=== PATIENT | male | born 1995 | race Caucasian/White ===

== ENCOUNTER 2019-07-04 20:37 | Emergency (ER) | payer OTHER ==
[2019-07-04 20:46] VITALS: BP 124/68; PULSE 83; RESP 18; TEMP 98.2
--- NOTE | 2019-07-04 20:48 | ED ---
General Adult HPI - General Chief complaint: Needlestick/Exposure Stated complaint: Needlestick [facility] Time Seen by Provider: 07/04/19 20:42 Source: patient Mode of arrival: ambulatory Limitations: no limitations - History of Present Illness Initial comments: Patient is a 23-year-old male presenting to the emergency department with a chief complaint of needlestick exposure. States he was cleaning a skin tear when he poked himself on the finger. Denies any pain in the region of injury. States his vaccinations are up-to-date. Source unknown. Has no complaints at this time. - Related Data Allergies Allergy/AdvReac Type Severity Reaction Status Date / Time No Known Allergies Allergy Verified 07/04/19 20:47 Review of Systems ROS Statement: Those systems with pertinent positive or pertinent negative responses have been documented in the HPI. ROS Other: All systems not noted in ROS Statement are negative. Past Medical History Past Medical History: No Reported History History of Any Multi-Drug Resistant Organisms: None Reported Additional Past Surgical History / Comment(s): retina surgery Past Psychological History: No Psychological Hx Reported Smoking Status: Never smoker Past Alcohol Use History: Occasional Past Drug Use History: None Reported General Exam Limitations: no limitations General appearance: alert, in no apparent distress Head exam: Present: atraumatic, normocephalic, normal inspection Eye exam: Present: normal appearance Pupils: Present: normal accommodation ENT exam: Present: normal exam, mucous membranes moist Neck exam: Present: normal inspection, full ROM Respiratory exam: Present: normal lung sounds bilaterally Cardiovascular Exam: Present: regular rate, normal rhythm, normal heart sounds Extremities exam: Present: normal inspection (No evidence of needle exposure), full ROM Back exam: Present: normal inspection, full ROM Neurological exam: Present: alert, oriented X3 Psychiatric exam: Present: normal affect, normal mood Skin exam: Present: warm, dry, intact, normal color Course Vital Signs 07/04/19 20:44 Temperature 98.2 F Pulse Rate 83 Respiratory 18 Rate Blood Pressure 124/68 O2 Sat by Pulse 97 Oximetry Medical Decision Making - Medical Decision Making Patient is a 23-year-old male presenting to emergency Department with a chief complaint of needle exposure. Patient was cleaning a sharps container when he poked himself with diabetic lancet. Denies any bleeding from the site of injury denies any pain to the region. This is an [facility] case. Laboratory work obtained. Patient will be notified with the results. Disposition Clinical Impression: Exposure to body fluid due to accidental needlestick injury Disposition: HOME SELF-CARE Condition: Stable Instructions (If sedation given, give patient instructions): Needle Stick Injuries (ED) Additional Instructions: You'll be contacted with the results. Is patient prescribed a controlled substance at d/c from ED?: No Referrals: Ganesh Pham DO [Primary Care Provider] - 1-2 days Time of Disposition: 21:13
== END 2019-07-04 21:31 | disposition home or self-care (01) ==
LOC: EC 20:37
DX: Z77.21 Contact with and (suspected) exposure to potentially hazardous body fluids (principal); W46.0XXA Contact with hypodermic needle, initial encounter; Y92.69 Other specified industrial and construction area as the place of occurrence of the external cause; Y99.0 Civilian activity done for income or pay
CPT/HCPCS: 99282

== ENCOUNTER → 2019-11-26 | Outpatient (CLI) | payer MEDICAID, OTHER | END | disposition home or self-care (01) | LOC: LABWHC1 09:11 | PROVIDERS: ATTEND Pediatrics Pediatric Infectious Diseases | DX: Z11.59 Encounter for screening for other viral diseases (principal) ==

== ENCOUNTER → 2019-11-27 | Outpatient (CLI) | payer MEDICAID | END | disposition home or self-care (01) | LOC: LABWHC1 10:27 | PROVIDERS: ATTEND Pediatrics Pediatric Infectious Diseases | DX: Z11.59 Encounter for screening for other viral diseases (principal) ==

== ENCOUNTER 2022-11-29 17:09 | Emergency (ER) | payer MEDICAID ==
--- NOTE | 2022-11-29 17:19 | ED ---
General Adult HPI - General Source: RN notes reviewed <Yoanna Acosta - Last Filed: 11/29/22 17:19> - General Source: patient, RN notes reviewed <Darcie Lewis - Last Filed: 11/30/22 00:28> - General Stated complaint: L Thumb Cut Time Seen by Provider: 11/29/22 17:19 - History of Present Illness Initial comments: male with no significant past medical history presents to the emergency department with a chief complaint of left thumb laceration. Patient reports he cut his hand on a knife prior to arrival. Unsure of last tetanus vaccine dose (Yoanna Acosta) 27-year-old male presents to the emergency department chief complaint of left lateral thumb laceration. He states that he cut his finger with a knife prior to arrival. He is unsure of his last tetanus shot date. Patient reports full ROM in fingers. Denies numbness, tingling. Denies significant past medical history. No known medication ALLERGIES. (Darcie Lewis) - Related Data Allergies Allergy/AdvReac Type Severity Reaction Status Date / Time No Known Allergies Allergy Verified 11/29/22 17:21 Review of Systems ROS Other: All systems not noted in ROS Statement are negative. <Yoanna Acosta - Last Filed: 11/29/22 17:19> ROS Other: All systems not noted in ROS Statement are negative. <Darcie Lewis - Last Filed: 11/30/22 00:28> ROS Statement: Those systems with pertinent positive or pertinent negative responses have been documented in the HPI. General Exam <Yoanna Acosta - Last Filed: 11/29/22 17:19> Limitations: no limitations General appearance: alert, in no apparent distress Head exam: Present: atraumatic, normocephalic, normal inspection Eye exam: Present: normal appearance ENT exam: Present: normal exam, mucous membranes moist Neck exam: Present: normal inspection. Absent: tenderness, meningismus, lymphadenopathy Respiratory exam: Present: normal lung sounds bilaterally. Absent: respiratory distress, wheezes, rales, rhonchi, stridor Cardiovascular Exam: Present: regular rate, normal rhythm, normal heart sounds. Absent: systolic murmur, diastolic murmur, rubs, gallop, clicks Extremities exam: Present: full ROM, normal capillary refill, other (Radial pulses 2+, 1 cm laceration to the lateral left thumb without evidence for foreign body). Absent: tenderness, pedal edema, joint swelling, calf tenderness Back exam: Present: normal inspection Neurological exam: Present: alert, oriented X3 Psychiatric exam: Present: normal affect, normal mood Skin exam: Present: warm, dry, normal color, other (1cm laceration to left). Absent: rash <Darcie Lewis - Last Filed: 11/30/22 00:28> - General Exam Comments Initial Comments: Visual Physical Exam Vital signs reviewed General: Well-appearing, nontoxic, no acute distress. Head: Normocephalic, atraumatic Eyes: PERRLA, EOMI ENT: Airway patent Chest: Nonlabored breathing Skin: No visual rash, normal skin tone Neuro: Alert and oriented 3 Musculoskeletal: No gross abnormalities (Yoanna Acosta) Course Vital Signs 11/29/22 11/29/22 17:18 20:10 Temperature 98.7 F 98.2 F Pulse Rate 75 71 Respiratory 18 16 Rate Blood Pressure 124/77 115/73 O2 Sat by Pulse 98 Oximetry Procedures - Laceration Laceration #1 Consent Obtained: verbal consent Indication: laceration Site: hand Size (cm): 1 Description: linear Depth: simple, single layer Anesthetic Used: lidocaine 1% Anesthesia Technique: local infiltration Amount (mls): 1 Pre-repair: wound explored, irrigated extensively Type of Sutures: other (Monofilament) Size of Sutures: 5-0 Number of Sutures: 2 Technique: simple, interrupted Patient Tolerated Procedure: well, no complications <Dacrie Lewis - Last Filed: 11/30/22 00:28> Medical Decision Making <Darcie Lewis - Last Filed: 11/30/22 00:28> - Medical Decision Making Was pt. sent in by a medical professional or institution (, PA, DIRECTOR OF GOLF, urgent care, hospital, or halfway...) When possible be specific @ -No Did you speak to anyone other than the patient for history (EMS, parent, family, police, friend...)? What history was obtained from this source @ -No Did you review nursing and triage notes (agree or disagree)? Why? @ -I reviewed and agree with nursing and triage notes Were old charts reviewed (outside hosp., previous admission, EMS record, old EKG, old radiological studies, urgent care reports/EKG's, halfway records)? Report findings @ -No old charts were reviewed Differential Diagnosis (chest pain, altered mental status, abdominal pain women, abdominal pain men, vaginal bleeding, weakness, fever, dyspnea, syncope, headache, dizziness, GI bleed, back pain, seizure, CVA, palpatations, mental health, musculoskeletal)? @ -Laceration, abrasion, cutaneous foreign body EKG interpreted by me (3pts min.). @ -none X-rays interpreted by me (1pt min.). @ -None done CT interpreted by me (1pt min.). @ -None done U/S interpreted by me (1pt. min.). @ -None done What testing was considered but not performed or refused? (CT, X-rays, U/S, labs)? Why? @ -XR considered but the wound was fairly superficial with no evidence of foreign body What meds were considered but not given or refused? Why? @ -None Did you discuss the management of the patient with other professionals (professionals i.e. , PA, DIRECTOR OF GOLF, lab, RT, psych nurse, psychiatric social worker supervisor, tenderizer tender, teacher, county health officer, case investigator)? Give summary @ -No Was smoking cessation discussed for >3mins.? @ -No Was critical care preformed (if so, how long)? @ -No Were there social determinants of health that impacted care today? How? (Homelessness, low income, unemployed, alcoholism, drug addiction, transportation, low edu. Level, literacy, decrease access to med. care, custodial, rehab)? @ -No Was there de-escalation of care discussed even if they declined (Discuss DNR or withdrawal of care, Hospice)? DNR status @ -No What co-morbidities impacted this encounter? (DM, HTN, Smoking, COPD, CAD, Cancer, CVA, ARF, Chemo, Hep., AIDS, mental health diagnosis, sleep apnea, morbid obesity)? @ -None Was patient admitted / discharged? Hospital course, mention meds given and route, prescriptions, significant lab abnormalities, going to OR and other pertinent info. @ -Discharged. Patient presented to emergency department chief complaint of left lateral thumb laceration which he cut his thumb on a knife. Patient was updated on his tetanus vaccination. Laceration was irrigated with normal saline about 250 mL and repaired with 2 simple interrupted sutures. Advised to have sutures removed in 5-7 days. Patient discharged in stable condition. Case discussed with my attending, Dr. South Undiagnosed new problem with uncertain prognosis? @ -No Drug Therapy requiring intensive monitoring for toxicity (Heparin, Nitro, Insulin, Cardizem)? @ -No Were any procedures done? @ -No Diagnosis/symptom? @ -laceration Acute, or Chronic, or Acute on Chronic? @ -acute Uncomplicated (without systemic symptoms) or Complicated (systemic symptoms)? @ -uncomplicated Side effects of treatment? @ -No Exacerbation, Progression, or Severe Exacerbation? @ -No Poses a threat to life or bodily function? How? (Chest pain, [place], [place], pneumonia, PE, COPD, DKA, ARF, appy, cholecystitis, CVA, Diverticulitis, Homicidal, Suicidal, threat to staff... and all critical care pts) @ -No (Darcie Lewis) Disposition <Yoanna Acosta - Last Filed: 11/29/22 17:19> Is patient prescribed a controlled substance at d/c from ED?: No Time of Disposition: 19:53 <Darcie Lewis - Last Filed: 11/30/22 00:28> Clinical Impression: Laceration Disposition: HOME SELF-CARE Condition: Stable Instructions (If sedation given, give patient instructions): Care For Your Stitches (ED) Additional Instructions: Have sutures removed in about 5-7 days. Return to the emergency department for new or worsening symptoms. Referrals: None,Stated [Primary Care Provider] - 1-2 days
[2022-11-29] MEDS ORDERED: DIPH,PERTUS(ACELL)TETVAC-LF 0.5 ML VIAL IM ONE (19:20)
[2022-11-29] MEDS ORDERED: LIDOCAINE 1% INJ 10MG/ML (30 ML VIAL-PF) SQ ONE (19:20)
[2022-11-29 20:12] VITALS: BP 115/73; PULSE 71; RESP 16; TEMP 98.2
== END 2022-11-29 20:12 | disposition home or self-care (01) ==
LOC: EDBD → EC 17:09 → MERGE 17:09 → EC 20:12
DX: S61.012A Laceration without foreign body of left thumb without damage to nail, initial encounter (principal); Z23 Encounter for immunization; W26.0XXA Contact with knife, initial encounter
CPT/HCPCS: 90715; 99282; 90471; J2001